=== PATIENT | female | born 1965 | race Caucasian/White ===

== ENCOUNTER 2018-06-12 12:35 | Emergency (ER) | payer BC ==
[~2018-06-12] VITALS: Ht 162.6 cm; Wt 68.0 kg
[2018-06-12 12:44] VITALS: BP 138/87
--- NOTE | 2018-06-12 13:04 | NUR ---
BROUGHT IN BY EMS FROM PRIVATE HOME C/O N/V & LOWER BACK PAIN SPASM TYPE PAIN / ANXIETY X TODAY ---1ST CHEMOTHERAPY YESTERDAY HX---[facility] STAGE 4 ([facility], [facility] ANXIETY RX---CHEMOTHERAPY DAUGHTER AT BEDSIDE.
[2018-06-12] MEDS ORDERED: NACL 0.9% 1,000 ML IV ONE ×2 (13:30)
[2018-06-12] MEDS ORDERED: PROMETHAZINE 25 MG/ML VIAL IM ONE (13:30)
[2018-06-12] MEDS ORDERED: ONDANSETRON 4 MG/2 ML VIAL IVP ONE (13:30)
[2018-06-12] MEDS ORDERED: MECLIZINE 25 MG TAB PO ONE (13:30)
[2018-06-12] MEDS ORDERED: FAMOTIDINE 20 MG/2 ML VIAL IVP ONE (13:30)
[2018-06-12] MEDS ORDERED: METOCLOPRAMIDE 10 MG/2 ML INJ VIAL IVP ONE (13:30)
[2018-06-12] MEDS ORDERED: LORazepam 2 MG/ML VIAL IVP ONE (13:30)
[2018-06-12 14:17] LABS: BASOPHILS # (AUTO) 0.2 K/uL (0.00-0.22); BASOPHILS % (AUTO) 2.9 % (0.0-2.0); EOSINOPHILS % (AUTO) 0.1 % (0.0-4.0); HEMATOCRIT 39.9 % (36-48); HEMOGLOBIN 13.6 g/dL (12.0-16.0); LYMPHOCYTES # (AUTO) 0.6 K/uL (2.5-16.5); LYMPHOCYTES % (AUTO) 8.3 % (20.5-51.1); MEAN CORPUSCULAR HEMOGLOBIN 30 pg (27-31); MEAN CORPUSCULAR HGB CONC 34 g/dL (33-37); MEAN CORPUSCULAR VOLUME 87.7 fL (80-94); MONOCYTES # (AUTO) 0.6 K/uL (0.8-1.0); MONOCYTES % (AUTO) 8.2 % (1.7-9.3); NEUTROPHILS # (AUTO) 5.8 K/uL (1.8-7.7); NEUTROPHILS % (AUTO) 80.5 % (42.2-75.2); PLATELET COUNT (AUTO) 461 K/uL (140-450); RED BLOOD CELL COUNT(AUTO) 4.55 MIL/uL (4.20-5.40); RED CELL DISTRIBUTION WIDTH 13.1 % (11.6-13.7); WHITE BLOOD COUNT (AUTO) 7.2 K/uL (4.8-10.8)
[2018-06-12 14:29] LABS: ANION GAP 14.5 (8-16); CARBON DIOXIDE 23.8 mmol/L (21-32); CHLORIDE 104 mmol/L (98-107); CREATININE 0.8 mg/dL (0.6-1.3); GFR ARICAN-AMERICAN 97 mL/min (>90); GLUCOSE 112 mg/dL (74-106); POTASSIUM 3.3 mmol/L (3.5-5.1); SODIUM SERUM 139 mmol/L (136-145); UREA NITROGEN, BLOOD 14 mg/dL (7-18)
[2018-06-12 14:34] LABS: ACETONE, SERUM NEGATIVE (NEGATIVE)
[2018-06-12 14:35] LABS: ALBUMIN 3.8 g/dL (3.4-5.0); AMYLASE 64 U/L (25-115); ASPARTATE AMINOTRANSFERASE 125 U/L (15-37); LIPASE 221 U/L (73-393); MAGNESIUM 1.9 mg/dL (1.8-2.4); TOTAL BILIRUBIN 1.2 mg/dL (0.0-1.0)
[2018-06-12 15:36] VITALS: BP 133/77
--- NOTE | 2018-06-12 15:36 | NUR ---
Patient discharged with v/s stable. Written and verbal after care instructions given and explained. Patient verbalized understanding. Wheel Chair Assisted with to car. All questions addressed prior to discharge. Advised to follow up with PMD.
== END 2018-06-12 15:36 | disposition home or self-care (01) ==
LOC: MED 12:35
DX: C18.9 Malignant neoplasm of colon, unspecified (principal); T45.1X5A Adverse effect of antineoplastic and immunosuppressive drugs, initial encounter; R11.2 Nausea with vomiting, unspecified; Y92.89 Other specified places as the place of occurrence of the external cause
CPT/HCPCS: 36415; 80053; 82009; 82150; 83690; 83735; 85025; 96361; 96372; 96374; 96375; 99283; J2060; J2405; J2550; J2765; J3490; J7030; J8597